=== PATIENT | female | born 1955 | race Caucasian/White ===

== ENCOUNTER 2017-10-01 08:20 | Outpatient (CLI) | payer OTHER ==
[2017-10-01 09:20] LABS: ALBUMIN/GLOBULIN RATIO 1.5 (1.0-2.2); BILIRUBIN,TOTAL 0.7 mg/dL (0.2-1.0); BUN - BLOOD UREA NITROGEN 13 mg/dL (6-20); CARBON DIOXIDE - CO2 28 mmol/L (21-32); CHLORIDE 105 mmol/L (101-111); CHOL/HDL RATIO 3.7 (<4.4); CHOLESTEROL 234 mg/dL; CREATININE 0.8 mg/dL (0.4-1.0); GFR - MDRD 72 (>89); GLUCOSE 100 mg/dL (70-100); HDL CHOLESTEROL 64 mg/dL; LDL/HDL RATIO 2.3 (<4.4); POTASSIUM 3.8 mmol/L (3.5-5.0); SODIUM 138 mmol/L (135-145); TOTAL PROTEIN 6.8 g/dL (6.7-8.2); TRIGLYCERIDES 104 mg/dL; VLDL CHOLESTEROL 21 mg/dL
--- NOTE | 2017-10-07 11:49 | Mammography Report ---
EXAM: DIGITAL BILATERAL SCREENING MAMMOGRAM: 10/01/2017 CLINICAL INDICATION: A 62-year-old nulliparous patient with history of benign biopsy, for screening. COMPARISON: 07/2016, 04/2015, 01/2014, 03/2011, 03/2010. TECHNIQUE: Routine CC and MLO projections were obtained of the breasts. FINDINGS: The breasts again demonstrate heterogeneously dense fibroglandular parenchyma bilaterally. Coarse and punctate, typically benign calcifications are present. A biopsy marker in the right upper outer central breast is stable. No suspicious masses, clustered microcalcifications, or regions of architectural distortion are identified. IMPRESSION: BENIGN FINDINGS. RECOMMENDATIONS: Routine annual screening unless otherwise clinically indicated. BIRADS 2 Benign findings. STANDARD QUALIFYING STATEMENTS: 1. This examination was reviewed with the aid of Computer-Aided Detection (CAD). 2. A negative or benign imaging report should not delay biopsy if clinically suspicious findings are present. Consider surgical consultation if warranted. More than 5% of cancers are not identified by imaging. 3. Dense breasts may obscure an underlying neoplasm. TD: 10/02/2017 17:05 [facility]ENTERMaria R
== END 2017-10-01 08:21 | disposition home or self-care (01) ==
LOC: DI 08:20
PROVIDERS: ATTEND Registered Nurse
DX: Z00.00 Encounter for general adult medical examination without abnormal findings (principal); Z12.31 Encounter for screening mammogram for malignant neoplasm of breast; E78.5 Hyperlipidemia, unspecified; M85.80 Other specified disorders of bone density and structure, unspecified site; Z11.59 Encounter for screening for other viral diseases
CPT/HCPCS: 36415; 77067; 80053; 80061; 82306; 86803

== ENCOUNTER 2019-10-14 10:08 | Outpatient (CLI) | payer MEDICARE, OTHER ==
[2019-10-14 10:35] LABS: BASOPHILS # (AUTO) 0.1 10^3/uL (0.0-0.1); BASOPHILS % (AUTO) 1.9 %; EOSINOPHILS # (AUTO) 0.1 10^3/uL (0.0-0.7); EOSINOPHILS % (AUTO) 4.5 %; HGB - HEMOGLOBIN 13.5 g/dL (12.0-16.0); LYMPHOCYTES % (AUTO) 33.2 %; MEAN CORPUSCULAR HEMOGLOBIN 31.2 pg (27.0-31.0); MEAN CORPUSCULAR HGB CONC 33.3 g/dL (32.0-36.0); MEAN CORPUSCULAR VOLUME 93.5 fL (81.0-99.0); MEAN PLATELET VOLUME 10.2 fL (7.9-10.8); MONOCYTES # (AUTO) 0.3 10^3/uL (0.0-1.0); MONOCYTES % (AUTO) 8.6 %; NEUTROPHILS # (AUTO) 1.6 10^3/uL (1.5-6.6); NEUTROPHILS % (AUTO) 51.5 %; PLT - PLATELET COUNT 180 10^3/uL (130-450); RED BLOOD COUNT 4.33 10^6/uL (4.20-5.40); RED CELL DISTRIBUTION WIDTH 11.9 % (12.0-15.0); WHITE BLOOD COUNT 3.1 x10^3/uL (4.8-10.8)
[2019-10-14 10:57] LABS: ALBUMIN 4.4 g/dL (3.2-5.5); ALBUMIN/GLOBULIN RATIO 1.8 (1.0-2.2); ALKALINE PHOSPHATASE 48 IU/L (42-121); ALT ALANINE AMINOTRANSFERASE 20 IU/L (10-60); AST ASPARTATE AMINOTRANSFERASE 21 IU/L (10-42); BILIRUBIN,TOTAL 1.1 mg/dL (0.2-1.0); BUN - BLOOD UREA NITROGEN 13 mg/dL (6-20); CARBON DIOXIDE - CO2 28 mmol/L (21-32); CHLORIDE 105 mmol/L (101-111); CHOL/HDL RATIO 3.6 (<4.4); CHOLESTEROL 247 mg/dL; CREATININE 0.9 mg/dL (0.4-1.0); GFR - MDRD 63 (>89); GLUCOSE 114 mg/dL (70-100); HDL CHOLESTEROL 69 mg/dL; LDL CHOLESTEROL,CALCULATED 161 mg/dL; LDL/HDL RATIO 2.3 (<4.4); SODIUM 140 mmol/L (135-145); TOTAL PROTEIN 6.9 g/dL (6.7-8.2); VLDL CHOLESTEROL 17 mg/dL
[2019-10-14 11:00] LABS: BILIRUBIN,URINE NEGATIVE (NEGATIVE); GLUCOSE, URINE (UA) NEGATIVE (NEGATIVE); KETONES,URINE (UA) NEGATIVE (NEGATIVE); LEUKOCYTE ESTERASE, URINE NEGATIVE (NEGATIVE); NITRITE,URINE NEGATIVE (NEGATIVE); OCCULT BLOOD,URINE NEGATIVE (NEGATIVE); PH,URINE 7.5 PH (5.0-7.5); PROTEIN,URINE NEGATIVE (NEGATIVE); UROBILINOGEN,URINE 0.2 (NORMAL) E.U./dL (NORMAL)
[2019-10-14 11:01] LABS: CLARITY,URINE CLEAR (CLEAR)
== END 2019-10-14 10:09 | disposition home or self-care (01) ==
LOC: LAB 10:08
PROVIDERS: ATTEND Registered Nurse
DX: Z00.00 Encounter for general adult medical examination without abnormal findings (principal); R82.90 Unspecified abnormal findings in urine; Z13.6 Encounter for screening for cardiovascular disorders
CPT/HCPCS: 36415; 80053; 80061; 81001; 81003; 83721; 85025; 87086

== ENCOUNTER 2019-11-16 07:43 | Outpatient (CLI) | payer MEDICARE, OTHER ==
--- NOTE | 2019-11-16 08:29 | Mammography Report ---
Reason: ROUTINE MAMMO Procedure Date: 11/16/2019 Accession Number: [id number] / [id number] Procedure: WENDY - Screening Mammo w/Ben CPT Code: Final Report FULL RESULT: EXAM: Screening Mammo w/Ben DATE: 11/16/2019 8:11 AM CLINICAL HISTORY: Screening encounter. History of nulliparity. History of right breast biopsy with clip placement in 2009, negative pathology. TECHNIQUE: (B) - Bilateral CC and MLO views were obtained. COMPARISON: 10/01/2017 through 03/04/2010. PARENCHYMAL PATTERN: (VD) - The breast(s) demonstrate(s) extremely dense parenchyma, limiting the sensitivity of mammography. FINDINGS: A biopsy clip is again seen in the right breast, typically benign and essentially unchanged. There are no suspicious masses, calcifications, or areas of distortion. IMPRESSION: Benign findings. BI-RADS category 2. RECOMMENDATION: (ANNUAL) - Recommend routine annual screening mammography. BI-RADS CATEGORY: (2) - Benign Findings. STANDARD QUALIFYING STATEMENTS: 1. This examination was not reviewed with the aid of Computer-Aided Detection (CAD). 2. A negative or benign imaging report should not preclude biopsy if clinically suspicious findings are present. 3. Dense breasts may obscure an underlying neoplasm. 4. This examination was reviewed with the aid of 3D breast imaging (tomosynthesis).
== END 2019-11-16 07:44 | disposition home or self-care (01) ==
LOC: DI 07:43
PROVIDERS: ATTEND Registered Nurse
DX: Z12.31 Encounter for screening mammogram for malignant neoplasm of breast (principal)
CPT/HCPCS: 77063; 77067

== ENCOUNTER 2019-11-16 08:12 | Outpatient (CLI) | payer MEDICARE, OTHER ==
[2019-11-16 08:31] LABS: BASOPHILS # (AUTO) 0.1 10^3/uL (0.0-0.1); BASOPHILS % (AUTO) 1.3 %; EOSINOPHILS # (AUTO) 0.2 10^3/uL (0.0-0.7); EOSINOPHILS % (AUTO) 5.2 %; HGB - HEMOGLOBIN 13.5 g/dL (12.0-16.0); LYMPHOCYTES # (AUTO) 1.1 10^3/uL (1.5-3.5); LYMPHOCYTES % (AUTO) 28.3 %; MEAN CORPUSCULAR HEMOGLOBIN 30.9 pg (27.0-31.0); MEAN CORPUSCULAR HGB CONC 32.8 g/dL (32.0-36.0); MEAN CORPUSCULAR VOLUME 94.1 fL (81.0-99.0); MEAN PLATELET VOLUME 9.4 fL (7.9-10.8); MONOCYTES # (AUTO) 0.4 10^3/uL (0.0-1.0); MONOCYTES % (AUTO) 9.2 %; NEUTROPHILS # (AUTO) 2.1 10^3/uL (1.5-6.6); NEUTROPHILS % (AUTO) 55.7 %; PLT - PLATELET COUNT 240 10^3/uL (130-450); RED BLOOD COUNT 4.37 10^6/uL (4.20-5.40); RED CELL DISTRIBUTION WIDTH 12.7 % (12.0-15.0); WHITE BLOOD COUNT 3.8 x10^3/uL (4.8-10.8)
[2019-11-16 08:47] LABS: ALBUMIN 4.2 g/dL (3.2-5.5); ALBUMIN/GLOBULIN RATIO 1.4 (1.0-2.2); BILIRUBIN,TOTAL 0.8 mg/dL (0.2-1.0); CALCIUM 9.1 mg/dL (8.5-10.3); CREATININE 0.8 mg/dL (0.4-1.0); TOTAL PROTEIN 7.2 g/dL (6.7-8.2)
[2019-11-16 08:53] LABS: HB2 TOTAL 14.1 g/dL; HEMOGLOBIN A1C 0.55 g/dL; HEMOGLOBIN A1C % 5.7 % (4.6-6.2)
== END 2019-11-16 08:13 | disposition home or self-care (01) ==
LOC: LAB 08:12
PROVIDERS: ATTEND Registered Nurse
DX: R73.01 Impaired fasting glucose (principal); D72.819 Decreased white blood cell count, unspecified; E78.5 Hyperlipidemia, unspecified
CPT/HCPCS: 36415; 80053; 82607; 83036; 85025

== ENCOUNTER 2019-12-05 11:59 | Day surgery (SDC) | payer MEDICARE, OTHER ==
[2019-12-05] MEDS ORDERED: LACTATED RINGERS 1,000 ML IV ONE (12:08)
[2019-12-05] MEDS ORDERED: MIDAZOLAM 2 MG/2 ML VIAL IVP ONE (13:05)
[2019-12-05] MEDS ORDERED: fentaNYL 250 MCG/5 ML VIAL IVP ONE (13:05)
[2019-12-05 14:43] VITALS: BP 90/59
== END 2019-12-05 12:00 | disposition home or self-care (01) ==
LOC: SDS 11:59
PROVIDERS: ATTEND Internal Medicine Gastroenterology
PROC: 0DBP8ZZ Excision of Rectum, Via Natural or Artificial Opening Endoscopic (ICD-10-PCS; principal; 2019-12-05 13:15)
DX: Z12.11 Encounter for screening for malignant neoplasm of colon (principal); K62.1 Rectal polyp; K57.30 Diverticulosis of large intestine without perforation or abscess without bleeding; Z80.0 Family history of malignant neoplasm of digestive organs
CPT/HCPCS: 45380; J3010; J7120

== ENCOUNTER 2020-07-24 18:14 | Outpatient (CLI) | payer MEDICARE, OTHER ==
--- NOTE | 2020-07-25 17:22 | XRAY Report ---
PROCEDURE: Shoulder 3 View RT INDICATIONS: RIGHT SHOULDER PAIN TECHNIQUE: 3 views of the shoulder were acquired. COMPARISON: None. FINDINGS: Bones: No fractures or dislocations. No suspicious bony lesions. Visualized ribs appear intact. M oderate acromioclavicular joint and lateral humeral joint osteoarthritis. Soft tissues: Ossification is noted adjacent the lateral margin of the humeral head compatible with r otator cuff calcific tendinitis. 5 mm rounded desiccation noted adjacent to the medial margin of the proximal right humerus which may represent a soft tissue dystrophic calcification or intra-articular ossified loose body. IMPRESSION: 1. Rotator cuff calcific tendinitis. 2. Osteoarthritis. 3. Right shoulder soft tissue dystrophic calcification versus 5 mm ossified intra-articular loose bod y. Reviewed by: Ronda Watkins MD, PhD on 07/25/2020 5:20 PM PDT Approved by: Ronda Watkins MD, PhD on 07/25/2020 5:20 PM PDT Station ID: [id number]
== END 2020-07-24 18:15 | disposition home or self-care (01) ==
LOC: DI 18:14
PROVIDERS: ATTEND Registered Nurse
DX: M19.011 Primary osteoarthritis, right shoulder (principal); M75.101 Unspecified rotator cuff tear or rupture of right shoulder, not specified as traumatic

== ENCOUNTER 2021-02-03 10:43 | Outpatient (CLI) | payer MEDICARE, OTHER ==
[2021-02-03 11:00] LABS: BASOPHILS % (AUTO) 1.1 %; EOSINOPHILS # (AUTO) 0.1 10^3/uL (0.0-0.7); EOSINOPHILS % (AUTO) 3.4 %; HCT - HEMATOCRIT 39.2 % (37.0-47.0); HGB - HEMOGLOBIN 13.3 g/dL (12.0-16.0); LYMPHOCYTES % (AUTO) 25.1 %; MEAN CORPUSCULAR HEMOGLOBIN 31.2 pg (27.0-31.0); MEAN CORPUSCULAR HGB CONC 33.9 g/dL (32.0-36.0); MEAN PLATELET VOLUME 9.9 fL (7.9-10.8); MONOCYTES # (AUTO) 0.3 10^3/uL (0.0-1.0); MONOCYTES % (AUTO) 7.1 %; NEUTROPHILS # (AUTO) 2.4 10^3/uL (1.5-6.6); PLT - PLATELET COUNT 187 10^3/uL (130-450); RED BLOOD COUNT 4.26 10^6/uL (4.20-5.40); RED CELL DISTRIBUTION WIDTH 12.4 % (12.0-15.0); WHITE BLOOD COUNT 3.8 x10^3/uL (4.8-10.8)
[2021-02-03 11:16] LABS: ALBUMIN 4.4 g/dL (3.2-5.5); ALBUMIN/GLOBULIN RATIO 1.8 (1.0-2.2); ALKALINE PHOSPHATASE 51 IU/L (42-121); ALT ALANINE AMINOTRANSFERASE 21 IU/L (10-60); AST ASPARTATE AMINOTRANSFERASE 19 IU/L (10-42); BUN - BLOOD UREA NITROGEN 15 mg/dL (6-20); CALCIUM 9.2 mg/dL (8.5-10.3); CARBON DIOXIDE - CO2 26 mmol/L (21-32); CHLORIDE 102 mmol/L (101-111); CHOL/HDL RATIO 3.5 (<4.4); CHOLESTEROL 264 mg/dL; CREATININE 0.9 mg/dL (0.4-1.0); GFR - MDRD 63 (>89); GLUCOSE 116 mg/dL (70-100); HDL CHOLESTEROL 75 mg/dL; LDL CHOLESTEROL,CALCULATED 176 mg/dL; LDL/HDL RATIO 2.3 (<4.4); SODIUM 136 mmol/L (135-145); TOTAL PROTEIN 6.9 g/dL (6.7-8.2); TRIGLYCERIDES 64 mg/dL; VLDL CHOLESTEROL 13 mg/dL
[2021-02-03 11:39] LABS: ESTIMATED AVERAGE GLUCOSE 108 mg/dL (70-100); HEMOGLOBIN A1c% 5.4 % (4.27-6.07)
== END 2021-02-03 10:44 | disposition home or self-care (01) ==
LOC: LAB 10:43
PROVIDERS: ATTEND Registered Nurse
DX: R73.01 Impaired fasting glucose (principal); E78.5 Hyperlipidemia, unspecified; M85.80 Other specified disorders of bone density and structure, unspecified site
CPT/HCPCS: 36415; 80053; 80061; 82306; 83036; 83721; 85025

== ENCOUNTER 2022-02-20 12:47 | Outpatient (CLI) | payer MEDICARE, OTHER ==
--- NOTE | 2022-02-21 16:22 | Mammography Report ---
BILATERAL DIGITAL SCREENING MAMMOGRAM 3D/2D: 02/20/2022 CLINICAL: Routine screening. Comparison is made to exams dated: 11/16/2019 mammogram, 10/01/2017 mammogram, 07/28/2016 mammogram, 05/17/2015 mammogram, and 02/06/2014 mammogram - [facility]. The tissue of both arcelia sts is extremely dense, which lowers the sensitivity of mammography. There is a biopsy clip in the right breast. No significant masses, calcifications, or other findings are seen in either breast. There has been no significant interval change. IMPRESSION: NEGATIVE There is no mammographic evidence of malignancy. A 1 year screening mammogram is recommended. This exam was interpreted at Station ID: [id number]. NOTE: For mammograms, a report in lay terms will be sent to the patient. Approximately 15% of breast malignancies will not be visualized mammographically. In the management of a palpable breast mass, a negative mammogram must not discourage biopsy of a clinically suspicious lesion. Electronically Signed By: Prince Mejias M.D. [email or web address]:02/20/2022 17:02:16 ACR BI-RADS Category 1: Negative 3341F PARENCHYMAL PATTERN: (VD) - The breast(s) demonstrate(s) extremely dense parenchyma, limiting the sen sitivity of mammography. BI-RADS CATEGORY: (1) - 1 RECOMMENDATION: (ANNUAL) - Recommend routine annual screening mammography. [id number] 1 year screening LATERALITY: (B)
== END 2022-02-20 12:48 | disposition home or self-care (01) ==
LOC: DI.N 12:47
PROVIDERS: ATTEND Registered Nurse
DX: Z12.31 Encounter for screening mammogram for malignant neoplasm of breast (principal)

== ENCOUNTER 2022-02-20 13:28 | Outpatient (CLI) | payer MEDICARE, OTHER ==
--- NOTE | 2022-02-20 17:07 | XRAY Report ---
PROCEDURE: Lumbar Spine 2 View INDICATIONS: LOW BACK PAIN TECHNIQUE: 2 views of the lumbar spine were acquired. COMPARISON: None. FINDINGS: Bones: 5 jar-edm-sjimanq vertebrae are present. There is approximately 6 mm of L4-L5 anterolisthesi s. Mild convex right curvature of the lumbar spine. No vertebral body compression fractures. No susp icious bony lesions. Mild degenerative disc changes noted throughout the lumbar spine. Mild L3-L4 fac et hypertrophy. Moderate L4-L5 and L5-S1 facet hypertrophy. Soft tissues: Overlying bowel gas pattern is normal. No suspicious soft tissue calcifications. IMPRESSION: 1. Multilevel degenerative disc disease. 2. Multilevel facet arthropathy. 3. No fracture. No acute osseous lesion. If there is continued clinical concern for pathology, then M RI should be considered for further evaluation. 4. Grade 1 L4-L5 degenerative spondylolisthesis. Reviewed by: Ronda Watkins MD, PhD on 02/20/2022 5:05 PM PDT Approved by: Ronda Watkins MD, PhD on 02/20/2022 5:05 PM PDT Station ID: [id number]
--- NOTE | 2022-02-20 17:08 | XRAY Report ---
PROCEDURE: SI Joints INDICATIONS: LOW BACK PAIN TECHNIQUE: 3 views of the sacroiliac joints were acquired. COMPARISON: None FINDINGS: Bones: No bony erosions or ankylosis. No suspicious bony lesions. No fractures. Mild osteoarthriti c degenerative changes noted in the inferior margin of the SI joints bilaterally. Soft tissues: Overlying bowel gas pattern is normal. No suspicious soft tissue densities. IMPRESSION: Mild bilateral sacroiliac joint osteoarthritis. Reviewed by: Ronda Watkins MD, PhD on 02/20/2022 5:06 PM PDT Approved by: Ronda Watkins MD, PhD on 02/20/2022 5:06 PM PDT Station ID: [id number]
== END 2022-02-20 23:59 | disposition home or self-care (01) ==
LOC: DI.N 13:28
PROVIDERS: ATTEND Registered Nurse
DX: M47.898 Other spondylosis, sacral and sacrococcygeal region (principal); M47.816 Spondylosis without myelopathy or radiculopathy, lumbar region; M43.16 Spondylolisthesis, lumbar region; M47.817 Spondylosis without myelopathy or radiculopathy, lumbosacral region

== ENCOUNTER 2022-08-25 20:39 | Outpatient (CLI) | payer MEDICARE, OTHER | END 2022-08-25 20:40 | disposition short-term general hospital (02) | LOC: EMS 20:39 | DX: R42 Dizziness and giddiness (principal); I95.9 Hypotension, unspecified | CPT/HCPCS: A0425; A0429 ==

== ENCOUNTER 2023-05-01 21:17 | Outpatient (CLI) | payer MEDICARE, OTHER ==
--- NOTE | 2023-05-01 22:44 | Ultrasound Report ---
PROCEDURE: Duplex Ext Veins Left INDICATIONS: UPPER EXTREMITY - EDEMA OF LEFT UPPER ARM TECHNIQUE: Real-time imaging, as well as color and pulse Doppler interrogation, were performed of the lower extr emity deep veins from the inguinal ligament to the popliteal fossa. COMPARISON: None. FINDINGS: There is nonocclusive filling defect consistent with thrombus demonstrated within the left subclavian vein. The left internal jugular, axillary, and brachial veins appear patent. The basilic and cephali c veins of the superficial system appear patent. There is an irregular heterogeneous collection withi n the left axilla measuring approximately 3.6 x 1.8 x 2 cm. IMPRESSION: 1. Nonocclusive deep venous thrombosis demonstrated in the left subclavian vein. 2. Irregular heterogeneous collection in the left axilla likely represents a hematoma given reported history of trauma one month prior. The patient was transferred to the emergency room for evaluation following the completion of the stud y. Reviewed by: Rafael Means MD on 05/01/2023 10:42 PM PDT Approved by: Rafael Means MD on 05/01/2023 10:42 PM PDT Station ID: [id number]
== END 2023-05-01 21:18 | disposition home or self-care (01) ==
LOC: DI 21:17
PROVIDERS: ATTEND Registered Nurse
DX: I82.622 Acute embolism and thrombosis of deep veins of left upper extremity (principal)

== ENCOUNTER 2023-05-01 22:15 | Emergency (ER) | payer MEDICARE, OTHER ==
--- NOTE | 2023-05-01 23:49 | ED Physician Documentation ---
History of Present Illness - Stated complaint Stated Complaint: SWOLLEN L HAND - Chief complaint Chief Complaint: Ext Problem - History obtained from History obtained from: Patient - Additonal information Additional information: Patient c/o 3 days of LUE swelling, circumferential from fingers to proximal upper arm. Denies h/o similar symptoms. Denies pain. She is left-hand dominant. This evening, patient had outpatient LUE US performed as ordered by her PMD for these symptoms, and this study demonstrates non-occlusive left subclavian vein DVT as well as left axillary heterogeneous collection most likely represents hematoma given reported history of trauma one month prior (per radiologists reading). In my d/w patient, she is not providing any confident recollection of trauma/injury within past several weeks. Patient denies chest pain, dyspnea, cough/hemoptysis. Review of Systems Constitutional: denies: Fever Cardiac: denies: Chest pain / pressure, Pedal edema Respiratory: reports: Reviewed and negative Musculoskeletal: reports: Extremity swelling (LUE) Neurologic: denies: Focal weakness, Numbness PD PAST MEDICAL HISTORY - Past Medical History Past Medical History: Yes Psych: Depression - Present Medications Home Medications: Ambulatory Orders Medication Instructions Recorded Confirmed Escitalopram [Lexapro] 10 mg PO DAILY 12/05/19 05/01/23 Apixaban [Eliquis] 5 mg PO BID 21 Days #42 tablet 05/02/23 Apixaban [Eliquis] 10 mg PO BID 7 Days #28 tablet 05/02/23 - Allergies Allergies/Adverse Reactions: Allergies Allergy/AdvReac Type Severity Reaction Status Date / Time acetaminophen [From Percocet] Allergy Nausea Verified 05/01/23 22:30 oxycodone [From Percocet] Allergy Nausea Verified 05/01/23 22:30 - Social History Does the pt smoke?: No Smoking Status: Never smoker Does the pt drink ETOH?: Yes Does the pt have substance abuse?: No - Immunizations Immunizations are current?: Yes PD ED PE NORMAL - Vitals Vital signs reviewed: Yes - General General: Alert and oriented X 3, No acute distress, Well developed/nourished - Neck Neck: Supple, no meningeal sign - Cardiac Cardiac: RRR, No murmur PD ED PE EXPANDED - Extremities Extremities: Swelling (circumferential edema LUE from fingers/thumb to mid/proximal upper arm. No erythema, brisk distal capillary refill with LTS intact. Strong, regular left radial pulse). No: Tenderness, Limited ROM Results - Vitals Vitals: Oxygen O2 Source Room air PD Medical Decision Making - ED course Complexity details: considered differential, d/w patient ED course: Unprovoked (no trauma, IV/PICC/CVC) LUE DVT in left subclavian vein. No h/o malignancy nor known current malignancy, no h/o DVT. Besides LUE swelling, no other symptoms of DVT nor embolic event (such as chest pain, dyspnea, hemoptysis). Calls were placed to obtain consult with vascular surgery to obtain advice regarding treatment and whether any further emergent testing is indicated for this unusual presentation. After some delay in receiving return call , I eventually heard from Dr. Burk (on-call vascular surgeon at [facility])). He recommends starting patient on DOAC such as eliquis and can d/c with outpatient follow up. No further testing indicated on emergent nor inpatient basis per this conversation with Dr. Burk. I discussed the US findings, diagnosis, treatment, and return precautions with the patient (emphasizing symptoms/signs of embolic event, worsening DVT, as well as possible complications of the DOAC such as bleeding). I instructed her to contact her PMD when the office next opens to arrange for next available appointment for reevaluation. Departure - Departure Disposition: 01 Home, Self Care Clinical Impression: Subclavian vein thrombosis, left Condition: Good Instructions: ED DVT Follow-Up: Rosie Mendez ARNP [Primary Care Provider] - Within 3 Days Prescriptions: Apixaban [Eliquis] 10 mg PO BID 7 Days #28 tablet Apixaban [Eliquis] 5 mg PO BID 21 Days #42 tablet Comments: The ultrasound shows that you have a blood clot in one of the larger veins of the left upper chest (subclavian vein, which drains the left arm).As we discussed, this is very unusual location for such a finding. I discussed the ultrasound findings with Dr. Burk (vascular surgeon information technology consultant at [facility]); he recommends starting a strong blood thinner such as apixaban (Eliquis), and you were given the first dose of this medication in the ER and I am electronically submitting prescriptions for a one month supply to the [facility] pharmacy in [place]. NOTE THAT TWO PRESCRIPTIONS ARE BEING PROVIDED. START WITH THE HIGHER DOSE PRESCRIPTION (10mg by mouth twice per day for one week). WHEN YOU HAVE COMPLETED THE FIRST WEEK OF THE 10MG DOSE, THEN TAKE THE 5MG (TWICE PER DAY) DOSE PER THE SECOND PRESCRIPTION. You will likely need more than one month of the blood thinner, but I will leave the further prescribing of blood-thinning medication to either your primary care provider or else to a specialist if your provider refers you to one. Contact your primary care provider when their office is next open to arrange for follow-up appointment. Be sure to mention that the ultrasound showed a blood clot and that you were started on a strong blood thinner. Discharge Date/Time: 05/02/23 02:22
[2023-05-02 02:04] VITALS: BP 128/85
[2023-05-02] MEDS ORDERED: APIXABAN 5 MG TABLET PO STA (02:05)
--- NOTE | 2023-05-03 16:42 | ED Physician Documentation ---
ED Addendum - Addendum Addendum: 05/03/23 16:41 Lizeth Gonsalez in [place] called. The patient's insurance prior authorization for Eliquis. The information provided faxed up from Lizeth Gonsalez showed that Xarelto was covered and did not require a prior authorization. Given that, I change the prescription to Xarelto 15 mg twice a day for 21 days. That was given verbally to the pharmacist by phone. Her primary care can pickling grader the prescription dosing and prescribing from there.
== END 2023-05-02 02:22 | disposition home or self-care (01) ==
LOC: ED 22:15
DX: I82.B12 Acute embolism and thrombosis of left subclavian vein (principal); Z79.899 Other long term (current) drug therapy
CPT/HCPCS: 99282; 99284; A9270

== ENCOUNTER 2023-05-06 07:19 | Outpatient (CLI) | payer MEDICARE, OTHER ==
[2023-05-06 08:35] LABS: ALBUMIN 4.4 g/dL (3.2-5.5); ALBUMIN/GLOBULIN RATIO 1.7 (1.0-2.2); ALKALINE PHOSPHATASE 56 IU/L (42-121); ALT ALANINE AMINOTRANSFERASE 19 IU/L (10-60); AST ASPARTATE AMINOTRANSFERASE 20 IU/L (10-42); BILIRUBIN,TOTAL 0.7 mg/dL (0.2-1.0); BUN - BLOOD UREA NITROGEN 11 mg/dL (6-20); CALCIUM 9.1 mg/dL (8.5-10.3); CARBON DIOXIDE - CO2 27 mmol/L (21-32); CHLORIDE 106 mmol/L (101-111); CHOL/HDL RATIO 3.8 (<4.4); CHOLESTEROL 262 mg/dL; CREATININE 0.8 mg/dL (0.4-1.0); GFR - MDRD 71 (>89); GLUCOSE 126 mg/dL (70-100); HDL CHOLESTEROL 69 mg/dL; LDL CHOLESTEROL,CALCULATED 146 mg/dL; LDL/HDL RATIO 2.1 (<4.4); SODIUM 139 mmol/L (135-145); TRIGLYCERIDES 236 mg/dL; VLDL CHOLESTEROL 47 mg/dL
[2023-05-06 10:23] LABS: ESTIMATED AVERAGE GLUCOSE 108 mg/dL (70-100); HEMOGLOBIN A1c% 5.4 % (4.27-6.07)
== END 2023-05-06 07:20 | disposition home or self-care (01) ==
LOC: LAB 07:19
PROVIDERS: ATTEND Registered Nurse
DX: R73.01 Impaired fasting glucose (principal); E78.5 Hyperlipidemia, unspecified
CPT/HCPCS: 36415; 80053; 80061; 83036; 83721

== ENCOUNTER 2023-05-22 09:47 | Outpatient (CLI) | payer MEDICARE, OTHER ==
[2023-05-22] MEDS ORDERED: LIDOCAINE-MPF 1% 5 ML VIAL ONE (10:40)
[2023-05-22] MEDS ORDERED: LIDOCAINE 1%-EPI 1:100000 50 ML VIAL SUBQ ONE (11:30)
[2023-05-22] MEDS ORDERED: LIDOCAINE-MPF 1% 5 ML VIAL TD ONE (12:21)
--- NOTE | 2023-05-22 13:46 | Ultrasound Report ---
PROCEDURE: Needle Bx Lymph Node INDICATIONS: AXILLA MASS, SUPRACLAVICULAR MASS TECHNIQUE: The indications, alternatives, benefits, risks, and complications of the procedure were e xplained to the patient. Written informed consent was obtained and placed in the chart. Real-time sonography was utilized to choose the site for percutaneous lymph node sampling. The skin was prepped and draped in the usual sterile fashion. 1% lidocaine was infiltrated down to the site o f interest. Serial hypodermic needles were then advanced into the site of interest under direct sono graphic visualization, and serial needle aspirates were obtained. The needles were then withdrawn; a bandage was applied to the procedure site. COMPARISON: CT chest, 05/06/2023. FINDINGS: Sample site(s): Left axillary mass Needle: 16-gauge Number of passes: 5 Medications: 1% lidocaine for local anaesthesia. Complications: None. IMPRESSION: 1. Successful ultrasound-guided left axillary mass biopsy. Note: There is a separate biopsy was requested of a left supraclavicular mass. The left supraclavicul ar mass is has identical ultrasound characteristics of the left axillary mass, suggesting the same di sease process. It is the level or slightly behind of the clavicle. US guided biopsy could not be safe ly performed of the left supraclavicular mass. Reviewed by: Kristina Garner MD on 05/22/2023 1:45 PM PDT Approved by: Kristina Garner MD on 05/22/2023 1:45 PM PDT Station ID: [id number]
== END 2023-05-22 09:48 | disposition home or self-care (01) ==
LOC: DI 09:47
PROVIDERS: ATTEND Registered Nurse
DX: C76.1 Malignant neoplasm of thorax (principal); C79.9 Secondary malignant neoplasm of unspecified site
CPT/HCPCS: 38505; 88305; 88341; 88342; 88344; 88360

== ENCOUNTER 2024-02-10 08:00 | Outpatient (CLI) | payer MEDICARE, OTHER | END 2024-02-10 23:59 | disposition home or self-care (01) | LOC: LAB.R 08:00 | PROVIDERS: ATTEND Registered Nurse | DX: Z51.81 Encounter for therapeutic drug level monitoring (principal); Z79.899 Other long term (current) drug therapy | CPT/HCPCS: 80177 ==

== ENCOUNTER 2024-02-24 08:00 | Outpatient (CLI) | payer MEDICARE, OTHER ==
[2024-02-24 22:06] LABS: CALCIUM 9.8 mg/dL (8.5-10.3); POTASSIUM 3.9 mmol/L (3.5-4.5)
== END 2024-02-24 23:59 | disposition home or self-care (01) ==
LOC: LAB.R 08:00
PROVIDERS: ATTEND Registered Nurse
DX: C79.31 Secondary malignant neoplasm of brain (principal)
CPT/HCPCS: 80048

== ENCOUNTER 2024-02-26 09:48 | Outpatient (CLI) | payer MEDICARE, OTHER ==
[~2024-02-26 09:48] MED LIST: GADOTERATE MEGLUMINE 7.5 MMOL/15 ML VIAL ONE
[2024-02-26] MEDS: GADOTERATE MEGLUMINE 7.5 MMOL/15 ML VIAL IVP ONE (10:46)
--- NOTE | 2024-03-03 14:56 | MRI Report ---
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 After the administration of contrast, axial and coronal T1 spin echo with fat saturation through the brain. COMPARISON: 12/22/2023 and 07/28/2023 (images only, no report). Correlation is also made with CT exam[facility], 02/29/2024 and 03/01/2024. FINDINGS: Image quality: Excellent. CSF spaces: Basal cisterns are patent. No extra-axial fluid collections. Ventricles are normal in size and shape. Brain: This patient has an infiltrating mass centered within the deep white matter of the right front al lobe, measuring 4 x 3.4 cm in greatest axial dimension, with a craniocaudal extent of 3.1 cm. Infi ltrate margins can be seen, with poorly defined enhancement seen adjacent to this mass. There is asso ciated stranding edema and mass effect, with a mild degree of midline shift, 3 mm. This mass is clear ly worse than on the prior recent outside MRI. No midline shift. There is cerebral volume loss for age. There is periventricular white matter chronic disease epidemiologist inna small vessel ischemic change. The brainstem appears normal. Diffusion-weighted images demonstra te no acute ischemic insults. No chronic ischemic insults. Normal intravascular flow voids are pres ent. Skull and face: Calvarial marrow is normal in signal. Orbits appear normal. Sinuses: Sinuses and mastoids appear clear. IMPRESSION: Clear interval worsening of the infiltrating mass centered within the deep white matter of the right frontal lobe compared to the prior outside MRI dated 12/22/2023. Reviewed by: Donovan Henley MD on 03/03/2024 1:55 PM LIBBY Approved by: Donovan Henley MD on 03/03/2024 1:55 PM AKJJ Station ID: [id number]
== END 2024-02-26 09:49 | disposition home or self-care (01) ==
LOC: DI 09:48
PROVIDERS: ATTEND Internal Medicine Hematology & Oncology
DX: C71.4 Malignant neoplasm of occipital lobe (principal)

== ENCOUNTER 2024-02-29 17:11 | Outpatient (CLI) | payer MEDICARE, OTHER | END 2024-02-29 22:05 | disposition critical access hospital (66) | LOC: EMS 17:11 | DX: R40.4 Transient alteration of awareness (principal); R63.0 Anorexia; R62.7 Adult failure to thrive | CPT/HCPCS: A0425; A0429 ==

== ENCOUNTER 2024-02-29 17:19 | Emergency (ER) | payer MEDICARE, OTHER ==
--- NOTE | 2024-02-29 17:30 | ED Physician Documentation ---
PD HPI ALTERED MENTAL STATUS - Stated complaint Stated Complaint: LETHARGY - History obtained from History obtained from: EMS - Additional information Additional information: She has a history of breast cancer and also a brain tumor. Not clear from the records if the brain tumor is a metastatic lesion but had recent treatment and getting chemotherapy for that. She is full code. She is brought in by ambulance for alteration of mental status. It is reported to me that her baseline is having a hemiplegia, presumably from the brain tumor but today is not responding. PD PAST MEDICAL HISTORY - Past Medical History Psych: Depression - Present Medications Home Medications: Ambulatory Orders Medication Instructions Recorded Confirmed Escitalopram [Lexapro] 10 mg PO DAILY 12/05/19 05/01/23 Apixaban [Eliquis] 5 mg PO BID 21 Days #42 tablet 05/02/23 Apixaban [Eliquis] 10 mg PO BID 7 Days #28 tablet 05/02/23 - Allergies Allergies/Adverse Reactions: Allergies Allergy/AdvReac Type Severity Reaction Status Date / Time acetaminophen [From Percocet] Allergy Nausea Verified 05/01/23 22:30 oxycodone [From Percocet] Allergy Nausea Verified 02/29/24 17:31 - Social History Does the pt smoke?: No Smoking Status: Never smoker Does the pt drink ETOH?: Yes Does the pt have substance abuse?: No - Immunizations Immunizations are current?: Yes PD ED PE NORMAL - Vitals Vital signs reviewed: Yes - General General: Other (She is unresponsive. She will wince to painful stimulus but does not follow commands.) - HEENT HEENT: Other (Midpoint reactive pupils, right gaze preference) - Neck Neck: Supple, no meningeal sign, No bony TTP - Cardiac Cardiac: RRR, No murmur - Respiratory Respiratory: No respiratory distress, Clear bilaterally - Abdomen Abdomen: Normal bowel sounds, Soft, Non tender - Neuro Neuro: Other (She whimpers to painful stimulus in the right upper and lower extremity. She withdraws to painful stimulus in the left upper and lower extremity) Eye Opening: To Pain Motor: Withdraws to Pain Verbal: Incomprehensible GCS Score: 8 Results - Vitals Vitals: Vital Signs - 24 hr 02/29/24 02/29/24 02/29/24 17:20 19:17 19:28 Temperature 36.9 C Heart Rate 66 56 L Respiratory 14 14 Rate Blood Pressure 99/75 97/75 111/71 O2 Saturation 93 96 02/29/24 21:00 Temperature Heart Rate 62 Respiratory 16 Rate Blood Pressure 115/82 H O2 Saturation 94 Oxygen O2 Source Room air - EKG (time done) 1827 EKG releavant findings:: EKG personally interpreted by author of this note. Relevant findings are: Rate: Rate (enter#) (63) Rhythm: NSR [place]: Normal Intervals: Normal DC QRS: Normal Ischemia: Normal ST segments Computer interpretation: Disagree with computer (Computer calling inferior ME. There is some artifact there but no ST elevation.) - Labs Labs: Laboratory Tests 02/29/24 02/29/24 02/29/24 17:42 17:42 17:42 WBC 3.4 L RBC 3.72 L Hgb 12.1 Hct 35.6 L MCV 95.7 MCH 32.5 H MCHC 34.0 RDW 13.0 Plt Count 160 MPV 9.6 Neut # (Auto) 2.5 Lymph # (Auto) 0.5 L [place] # (Auto) 0.3 Eos # (Auto) 0.0 Baso # (Auto) 0.0 Absolute Nucleated RBC 0.00 Nucleated RBC % 0.0 PT 15.1 H INR 1.4 H VBG pH VBG pCO2 VBG pO2 VBG HCO3 VBG Total CO2 VBG O2 Saturation VBG Base Excess Sodium 139 Potassium 3.8 Chloride 108 Carbon Dioxide 25 Anion Gap 6.0 BUN 25 H Creatinine 1.0 Estimated GFR (MDRD) 55 L Glucose 95 Lactic Acid Calcium 10.0 Magnesium 2.0 Total Bilirubin 0.9 AST 11 ALT 16 Alkaline Phosphatase 38 L Ammonia Total Protein 5.9 L Albumin 3.6 Globulin 2.3 Albumin/Globulin Ratio 1.6 Urine Color Urine Clarity Urine pH Ur Specific [place] Urine Protein Urine Glucose (UA) Urine Ketones Urine Occult Blood Urine Nitrite Urine Bilirubin Urine Urobilinogen Ur Leukocyte Esterase Urine RBC Urine WBC Ur Squamous Epith Cells Amorphous Sediment Urine Bacteria Ur Microscopic Review Urine Culture Comments Ethyl Alcohol < 10.0 02/29/24 02/29/24 02/29/24 17:42 17:42 17:42 WBC RBC Hgb Hct MCV MCH MCHC RDW Plt Count MPV Neut # (Auto) Lymph # (Auto) [place] # (Auto) Eos # (Auto) Baso # (Auto) Absolute Nucleated RBC Nucleated RBC % PT INR VBG pH 7.467 H VBG pCO2 31.8 L VBG pO2 90.1 H VBG HCO3 22.5 L VBG Total CO2 23.4 L VBG O2 Saturation 96.9 H VBG Base Excess -0.5 Sodium Potassium Chloride Carbon Dioxide Anion Gap BUN Creatinine Estimated GFR (MDRD) Glucose Lactic Acid 0.5 Calcium Magnesium Total Bilirubin AST ALT Alkaline Phosphatase Ammonia 24.9 Total Protein Albumin Globulin Albumin/Globulin Ratio Urine Color Urine Clarity Urine pH Ur Specific [place] Urine Protein Urine Glucose (UA) Urine Ketones Urine Occult Blood Urine Nitrite Urine Bilirubin Urine Urobilinogen Ur Leukocyte Esterase Urine RBC Urine WBC Ur Squamous Epith Cells Amorphous Sediment Urine Bacteria Ur Microscopic Review Urine Culture Comments Ethyl Alcohol 02/29/24 18:35 WBC RBC Hgb Hct MCV MCH MCHC RDW Plt Count MPV Neut # (Auto) Lymph # (Auto) [place] # (Auto) Eos # (Auto) Baso # (Auto) Absolute Nucleated RBC Nucleated RBC % PT INR VBG pH VBG pCO2 VBG pO2 VBG HCO3 VBG Total CO2 VBG O2 Saturation VBG Base Excess Sodium Potassium Chloride Carbon Dioxide Anion Gap BUN Creatinine Estimated GFR (MDRD) Glucose Lactic Acid Calcium Magnesium Total Bilirubin AST ALT Alkaline Phosphatase Ammonia Total Protein Albumin Globulin Albumin/Globulin Ratio Urine Color DARK YELLOW Urine Clarity TURBID Urine pH 6.0 Ur Specific [place] 1.025 Urine Protein 30 H Urine Glucose (UA) NEGATIVE Urine Ketones NEGATIVE Urine Occult Blood LARGE H Urine Nitrite NEGATIVE Urine Bilirubin NEGATIVE Urine Urobilinogen 1 (NORMAL) Ur Leukocyte Esterase LARGE H Urine RBC TNTC H Urine WBC >25 H Ur Squamous Epith Cells NONE SEEN Amorphous Sediment Marked Urine Bacteria Few Ur Microscopic Review INDICATED Urine Culture Comments INDICATED Ethyl Alcohol - Rads (name of study) CT brain Relevant Findings:: Final report received (CT of the brain demonstrating large right basal ganglia mass with surrounding edema and compression of the right lateral and third ventricles with 7 mm midline shift), EMP independent interpretation of test PD Medical Decision Making - ED course ED course: arrived at bedside and we spoke approximately 5:30 PM. 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 She is still full code. She was hospitalized at the [facility] for about 2-1/2 months with chemo and radiation having been sent to rehab about a month ago. She was still talking as of 2 days ago. She did have an MRI done here on Thursday, it has not been read yet. I asked them to have it read stat and looked at it personally. There is a large right-sided mass with some midline shift and effacement of the right ventricles. Lab work demonstrates lymphopenia, likely from recent chemotherapy. INR slightly elevated at 1.4. Venous blood gas showing a respiratory alkalosis, so she is not hypoventilatory with her altered mental status. CMP, lactate, ammonia levels, and blood alcohol all negative/unremarkable. Spoke with Dr Arlin GARZA, At [facility] who accepts the patient and would like her to come directly down for seizure workup but also notes that given the progression of her tumor size there may not much to be offered. This was relayed to the who is agreeable to her transfer. ACcepted to the [facility] ED at this time (2020) by Dr. Yahaira Ruelas. She will go via [facility]. Cobras are completed. She did appear to be maintaining her airway well enough that I did not think that she needed intubation prior to transport. Departure - Departure Disposition: 02 Transfer Acute Care Hosp Clinical Impression: Coma, Brain mass Condition: Serious Forms: PCP List Discharge Date/Time: 02/29/24 21:17
[2024-02-29 17:47] LABS: BASOPHILS % (AUTO) 0.9 %; EOSINOPHILS % (AUTO) 1.2 %; HCT - HEMATOCRIT 35.6 % (37.0-47.0); HGB - HEMOGLOBIN 12.1 g/dL (12.0-16.0); LYMPHOCYTES # (AUTO) 0.5 10^3/uL (1.5-3.5); LYMPHOCYTES % (AUTO) 14.3 %; MEAN CORPUSCULAR HEMOGLOBIN 32.5 pg (27.0-31.0); MEAN CORPUSCULAR VOLUME 95.7 fL (81.0-99.0); MEAN PLATELET VOLUME 9.6 fL (7.9-10.8); MONOCYTES # (AUTO) 0.3 10^3/uL (0.0-1.0); MONOCYTES % (AUTO) 8.8 %; NEUTROPHILS # (AUTO) 2.5 10^3/uL (1.5-6.6); NEUTROPHILS % (AUTO) 74.2 %; PLT - PLATELET COUNT 160 10^3/uL (130-450); RED BLOOD COUNT 3.72 10^6/uL (4.20-5.40); WHITE BLOOD COUNT 3.4 x10^3/uL (4.8-10.8)
[2024-02-29 17:50] LABS: VBG PH 7.467 (7.31-7.41)
[2024-02-29 17:51] LABS: VBG BASE EXCESS -0.5 mmol/L (-2 - +2); VBG HCO3 22.5 mmol/L (23-28); VBG OXYGEN SATURATION 96.9 % (60-80); VBG PCO2 31.8 mmHg (41-51); VBG PO2 90.1 mmHg (25-47); VBG TOTAL CO2 23.4 mmol/L (24-29)
[2024-02-29 18:01] LABS: ALBUMIN 3.6 g/dL (3.2-5.5); ALBUMIN/GLOBULIN RATIO 1.6 (1.0-2.2); ALKALINE PHOSPHATASE 38 IU/L (42-121); ALT ALANINE AMINOTRANSFERASE 16 IU/L (10-60); AST ASPARTATE AMINOTRANSFERASE 11 IU/L (10-42); BILIRUBIN,TOTAL 0.9 mg/dL (0.2-1.0); BUN - BLOOD UREA NITROGEN 25 mg/dL (6-20); CARBON DIOXIDE - CO2 25 mmol/L (21-32); CHLORIDE 108 mmol/L (101-111); ETOH - ETHANOL < 10.0 mg/dL; GFR - MDRD 55 (>89); GLUCOSE 95 mg/dL (74-104); INR 1.4 (0.8-1.2); POTASSIUM 3.8 mmol/L (3.5-4.5); PT - PROTHROMBIN TIME 15.1 secs (9.9-12.6); SODIUM 139 mmol/L (135-145); TOTAL PROTEIN 5.9 g/dL (6.4-8.9)
[2024-02-29 18:44] LABS: BILIRUBIN,URINE NEGATIVE (NEGATIVE); GLUCOSE, URINE (UA) NEGATIVE (NEGATIVE); KETONES,URINE (UA) NEGATIVE (NEGATIVE); LEUKOCYTE ESTERASE, URINE LARGE (NEGATIVE); NITRITE,URINE NEGATIVE (NEGATIVE); OCCULT BLOOD,URINE LARGE (NEGATIVE); PROTEIN,URINE 30 mg/dL (NEGATIVE); UROBILINOGEN,URINE 1 (NORMAL) E.U./dL (NORMAL)
[2024-02-29 18:45] LABS: CLARITY,URINE TURBID (CLEAR)
--- NOTE | 2024-02-29 18:53 | CT Report ---
PROCEDURE: Head WO INDICATIONS: ams TECHNIQUE: Noncontrast 4.5 mm thick angled axial sections acquired from the foramen magnum to the vertex. For r adiation dose reduction, the following was used: automated exposure control, adjustment of mA and/or kV according to patient size. COMPARISON: MRI brain 02/26/2024 FINDINGS: Image quality: Motion degraded. CSF spaces: Basal cisterns are patent. No extra-axial fluid collections. Ventricles are normal in size and shape. Brain: There is a large lesion centered within the right basal ganglia measuring approximately 4.3 x 3.6 cm with surrounding edema. This results in mass effect on the right lateral and third ventricles and results in approximately 7 mm of leftward midline shift. This is approximately similar in appeara nce compared to recent prior MRI. Mancuso-white matter interface is normal. Skull and face: Calvarium and visualized facial bones are intact, without suspicious lesions. Sinuses: Visualized sinuses and mastoids are clear. IMPRESSION: Large mass centered within the right basal ganglia with surrounding edema resulting in mass effect an d compression of the right lateral and third ventricles with resultant 7 mm of leftward midline shift . This is grossly similar in appearance to recent prior MRI. Reviewed by: Vidal Yin MD on 02/29/2024 6:51 PM PDT Approved by: Vidal Yin MD on 02/29/2024 6:51 PM PDT Station ID: [id number]
[2024-02-29 18:58] LABS: AMORPHOUS SEDIMENT,UR Marked /LPF; BACTERIA,URINE Few /HPF (None Seen); RBC,URINE TNTC /HPF (0-5); SQUAMOUS EPITHELIAL CELL,UR NONE SEEN (<= Few); WBC,URINE >25 /HPF (0-5)
[2024-02-29] MEDS: cefTRIAXone 1 GM VIAL IVP STA (19:22)
[2024-02-29 21:04] VITALS: BP 115/82; O2SAT 94
== END 2024-02-29 21:17 | disposition short-term general hospital (02) ==
LOC: EDUNIT# → ED 17:19
DX: R40.20 Unspecified coma (principal); D49.6 Neoplasm of unspecified behavior of brain; G93.9 Disorder of brain, unspecified; Z79.60 Long term (current) use of unspecified immunomodulators and immunosuppressants; G81.90 Hemiplegia, unspecified affecting unspecified side; Z79.01 Long term (current) use of anticoagulants
CPT/HCPCS: 36415; 70450; 80053; 81001; 82140; 82803; 83605; 83735; 85025; 85610; 87086; 93005; 96374; 99285; G0480; P9612; 51701; 81003; 82077; 87077; 87181